=== PATIENT | male | born 1940 | race Caucasian/White ===

== ENCOUNTER 2021-03-01 13:23 | Outpatient (REF) | payer MEDICARE, SELFPAY ==
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
--- NOTE | 2021-03-01 16:15 | MHC.AU.MED ---
Medical Clearance for Hearing Instrumentation Date: 03/01/21 Patient Name: Reginald Vides Date of : 1940 Primary Care Provider: Referring Provider: Silvano Chong M.D. We have seen your patient on 03/01/21 and have determined that they are a candidate for amplification (See accompanying report). Specifically, they would benefit from: Hearing aid use in both ears There is a statute that addresses Medical Evaluation Requirements prior to fitting a patient with a hearing aid. According to [place] statute 265 CMR:6.03(1), (a) General. Except as provided in 265 CMR 6.03(1)(b), a interviewing clerk shall not sell a hearing aid unless the prospective user has presented to the interviewing clerk a written statement signed by a licensed physician that states that the patient's hearing loss has been medically evaluated and the patient may be considered a candidate for a hearing aid. The medical evaluation must have taken place within the preceding six months. Please note: Due to the [place] Statute referenced above, we cannot accept a signature other than that of a licensed physician. TAPE FOLDING MACHINE OPERATOR and PA signatures cannot be accepted. I am in agreement with the above recommendation. There is no medical contraindication for hearing instrumentation. Physician Signature Date Physician Name (Printed)
== END 2021-03-01 13:24 | disposition home or self-care (01) ==
LOC: HO.SH 13:23
PROVIDERS: Visit Provider Nurse Practitioner Family
DX: Z46.1 Encounter for fitting and adjustment of hearing aid (principal); H90.3 Sensorineural hearing loss, bilateral; H93.13 Tinnitus, bilateral
CPT/HCPCS: 92557